=== PATIENT | male | born 1965 | race Two or more races ===

== ENCOUNTER 2017-02-02 12:58 | Day surgery (SDC) | payer OTHER ==
[~2017-02-02] VITALS: Ht 180.3 cm; Wt 103.0 kg
[2017-02-02 14:15] VITALS: Ht 180.3 cm; Wt 103.0 kg
[2017-02-02] MEDS ORDERED: PROPOFOL 20 ML ONE (14:24)
[2017-02-02] MEDS ORDERED: FENTAnyl 50 MCG/ML VIAL ONE (14:24)
[2017-02-02 14:34] VITALS: BP 113/69; PULSE 81; RESP 22
[2017-02-02] MEDS ORDERED: NO HOME MEDS (14:47)
[2017-02-02 15:40] VITALS: BP 121/78; PULSE 79; RESP 12
--- NOTE | 2017-02-02 15:46 | OPR ---
DATE OF OPERATION: 02/02/2017 PROCEDURE PERFORMED: Colonoscopy and biopsy. PREOPERATIVE DIAGNOSIS: Need for screening colonoscopy. POSTOPERATIVE DIAGNOSIS: A diminutive polyp in the rectum and mild diverticula. SURGEON: Carlyn Ross MD. ANESTHESIOLOGIST: YANETH CASTELLON MD. POSITION: Left lateral decubitus. ANESTHESIA: MAC. ESTIMATED BLOOD LOSS: None. INDICATIONS: A 51-year-old man whom I saw in the office for an unrelated reason. The patient state d that he never had a screening colonoscopy. I discussed the risks and benefits of the screening co lonoscopy including bleeding, infection, damage to surrounding structures and perforation. The sharee ent is agreeable to the procedure and we went to the OR. DESCRIPTION OF PROCEDURE: After obtaining consent, the patient was brought to the operating room. After induction of anesthesia, the patient was placed in the left lateral decubitus position. Press ure points were carefully padded. We began with the digital rectal examination which was only signi ficant for some mild hemorrhoidal tags. I then placed an Olympus colonoscope in the patient's anus and navigated carefully to the patient's cecum. The cecum was identified by the appendiceal orifice and the ileocecal valve. The prep was good. I slowly tracked the scope the entirety of the colon. The only abnormality was some mild scattered diverticula and a diminutive polyp in the rectum whic h was removed by cold forceps. Hemostasis was achieved. On retroflexion, there were only mild inte rnal hemorrhoids. The scope was then removed and the procedure was terminated. The patient tolerated the procedure well and the patient was transported to the PACU in good conditi on. I will call the patient with the biopsy results. Dictated By: CARLYN ELLINGTON/NTS Conf#: [id number] DID#: [id number]
== END 2017-02-02 15:39 | disposition home or self-care (01) ==
LOC: GIL 12:58
PROVIDERS: ATTEND Surgery
DX: Z12.11 Encounter for screening for malignant neoplasm of colon (principal); K62.1 Rectal polyp; E66.9 Obesity, unspecified; Z68.31 Body mass index [BMI] 31.0-31.9, adult
CPT/HCPCS: 45380; 88305; J3010